=== PATIENT | female | born 1955 | race Hispanic/Latino ===

== ENCOUNTER 2024-08-17 10:54 | Emergency (ER) | payer MEDICARE ==
[2024-08-17 12:04] LABS: #Basophils 0.03 10x3/uL (0.0-0.2); %Basophils 0.5 % (0.0-1.0); %Eosinophils 3.6 % (0.0-10.0); %Monocytes 8.1 % (0.0-10.0); %Neutrophils 54.5 % (42.0-75.0); Hematocrit 33.5 % (36.0-47.0); Hemoglobin 11.6 g/dL (12.0-16.0); Mean Corpuscular HGB CONC 34.6 g/dL (32.0-36.0); Mean Corpuscular Hemoglobin 29.4 pg (27.0-31.0); Mean Corpuscular Volume 84.8 fL (78.0-98.0); Mean Platelet Volume 10.8 fL (7.4-10.4); Platelet Count 205 10x3/uL (130-400); Red Blood Cell (RBC) Count 3.95 mill/uL (4.20-5.40)
[2024-08-17 12:45] LABS: Troponin I Less than 0.010 ng/mL (< 0.028)
[2024-08-17 12:58] LABS: ALT (SGPT) 10 U/L (8-55); AST (SGOT) 32 U/L (5-34); Albumin 3.3 g/dL (3.4-4.8); Alkaline Phosphatase 236 U/L (40-110); Anion Gap 14 mmol/L (10-20); BUN (Urea Nitrogen) 20 mg/dL (9.8-20.1); Bilirubin, Total 0.3 mg/dL (0.2-1.2); Calc. Creatinine Clearance 0 mL/min (70-130); Calcium 8.9 mg/dL (7.8-10.44); Carbon Dioxide 24 mmol/L (23-31); Chloride 98 mmol/L (98-107); Estimated GFR 43; Globulin 4.2 g/dL (2.4-3.5); Glucose 599 mg/dL (80-115); Lipase 8 U/L (8-78); Potassium 4.6 mmol/L (3.5-5.1); Protein, Total 7.5 g/dL (5.8-8.1); Sodium 131 mmol/L (136-145)
[2024-08-17 13:27] LABS: Actual Bicarbonate (HCO3v) 28.5 mEq/L (22-28); Analyzer IN Cardio ER; Base Excess 2.1 mEq/L (-2.0 to +3.0); Calcium, Ionized (venous) 1.15 mmol/L (1.16-1.32); Chloride (VBG) 97 mmol/L (98-106); Hematocrit-VBG 34 % (36.0-47.0); Hemoglobin (Hb) 11.7 g/dL (11.7-16.1); Potassium (VBG) 4.33 mmol/L (3.70-5.30); Sodium 133 mmol/L (133-146)
[2024-08-17 13:55] LABS: Bacteria/HPF None Seen HPF (None Seen); Bilirubin Negative (Negative); Blood, Urine Negative (Negative); CAUTI Indications for Culture Pelvic or flank pain; Clarity Clear (Clear); Glucose, Urine (Dipstick) Greater than 1000 mg/dL (Negative); Ketone, Urine Negative (Negative); Leukocyte Negative Leu/uL (Negative); Nitrite Negative (Negative); Protein, Urine (Dipstick) Negative (Neg-Trace); RBC/HPF 0-3 HPF (0-3); Specific Gravity, Urine 1.025 (1.002-1.036); Squamous Epithelial 0-3 HPF (0-3); Urobilinogen Normal mg/dL (Less than 2); WBC/HPF 0-3 HPF (0-3); pH, Urine 6.5 (5.0-9.0)
[2024-08-17 13:58] LABS: Urine Culture Reflex No No
[2024-08-17] MEDS ORDERED: Iopamidol-370 76% 500 ML MDV (1 ML CHARGE) ONE (14:04)
[2024-08-17] MEDS ORDERED: Ketorolac Tromethamine 30 MG (1 mL) VIAL ONE (14:12)
[2024-08-17] MEDS ORDERED: Acetaminophen 500 MG TAB ONE (14:12)
[2024-08-17] MEDS ORDERED: Insulin Regular, Human 100 UNIT/ML 10 ML VIAL ONE (17:02)
[2024-08-17] MEDS ORDERED: cefTRIAXone (ROCEPHIN) 1 GM VIAL ONE (18:01)
[2024-08-17] MEDS ORDERED: Sodium Chloride 0.9% 100 ML ONE (18:01)
== END 2024-08-17 19:19 | disposition home or self-care (01) ==
LOC: ERS 10:54
DX: K04.7 Periapical abscess without sinus (principal); E11.65 Type 2 diabetes mellitus with hyperglycemia; I10 Essential (primary) hypertension; E03.9 Hypothyroidism, unspecified; Z55.6 Problems related to health literacy
CPT/HCPCS: 70450; 70487; 71045; 80053; 81001; 82805; 82962; 83605; 83690; 84484; 85025; 93005; J0696; J1815; J1885; 36415; 36416; 96365; 96375; Q9967

== ENCOUNTER 2024-09-09 19:25 | Inpatient (IN) | payer MEDICARE ==
[2024-09-09 20:54] LABS: #Basophils 0.05 10x3/uL (0.0-0.2); %Basophils 0.5 % (0.0-1.0); %Eosinophils 3.9 % (0.0-10.0); %Lymphocytes 28.8 % (21.0-51.0); %Monocytes 8.4 % (0.0-10.0); %Neutrophils 58.1 % (42.0-75.0); Hemoglobin 11.3 g/dL (12.0-16.0); Mean Corpuscular HGB CONC 34.2 g/dL (32.0-36.0); Mean Corpuscular Volume 84.8 fL (78.0-98.0); Mean Platelet Volume 10.5 fL (7.4-10.4); Platelet Count 189 10x3/uL (130-400); Red Blood Cell (RBC) Count 3.89 mill/uL (4.20-5.40)
[2024-09-09 21:11] LABS: ALT (SGPT) 10 U/L (8-55); AST (SGOT) 23 U/L (5-34); Albumin 3.4 g/dL (3.4-4.8); Alkaline Phosphatase 203 U/L (40-110); Anion Gap 15 mmol/L (10-20); BUN (Urea Nitrogen) 27 mg/dL (9.8-20.1); Bilirubin, Total 0.3 mg/dL (0.2-1.2); Calc. Creatinine Clearance 0 mL/min (70-130); Calcium 8.8 mg/dL (7.8-10.44); Carbon Dioxide 22 mmol/L (23-31); Chloride 103 mmol/L (98-107); Estimated GFR 36; Globulin 3.8 g/dL (2.4-3.5); Glucose 395 mg/dL (80-115); Lipase 8 U/L (8-78); Magnesium 1.6 mg/dL (1.6-2.6); Potassium 4.2 mmol/L (3.5-5.1); Protein, Total 7.2 g/dL (5.8-8.1); Sodium 136 mmol/L (136-145)
[2024-09-09 21:17] LABS: Troponin I 0.025 ng/mL (< 0.028)
[2024-09-09] MEDS ORDERED: Acetaminophen 500 MG TAB ONE (21:56)
[2024-09-09] MEDS ORDERED: Morphine 4 MG/ML VIAL ONE (22:29)
[2024-09-09] MEDS ORDERED: Azithromycin 500 MG VIAL ONE (23:11)
[2024-09-09] MEDS ORDERED: methylPREDNISolone Sod Succ/PF 125 MG/2 ML VIAL ONE (23:11)
[2024-09-09] MEDS ORDERED: cefTRIAXone (ROCEPHIN) 2 GM VIAL ONE (23:11)
[2024-09-09] MEDS ORDERED: Sodium Chloride 0.9% 100 ML ONE (23:11)
[2024-09-09] MEDS ORDERED: Ipratropium/Albuterol 3 ML NEB ONE (23:11)
[2024-09-09] MEDS ORDERED: Aspirin Chewable 81 MG TAB ONE (23:30)
[2024-09-10] MEDS ORDERED: Dextrose 50% Abboject 50 ML SYRINGE SLOW IVP PRN (02:08)
[2024-09-10] MEDS ORDERED: Ondansetron PF 4 MG/2 ML Vial IVP PRN (02:08)
[2024-09-10] MEDS ORDERED: Ondansetron ODT 4 MG TAB PO PRN (02:08)
[2024-09-10] MEDS ORDERED: Glucagon 1 MG/ML KIT IM PRN (02:08)
[2024-09-10] MEDS ORDERED: Dextrose 5% in Water 1,000 ML IV PRN (02:08)
[2024-09-10] MEDS ORDERED: Ipratropium/Albuterol 3 ML NEB NEB PRN (02:24)
[2024-09-10 02:51] LABS: Troponin I 0.063 ng/mL (< 0.028)
[2024-09-10] MEDS ORDERED: Nitroglycerin 0.4 MG TAB (25 Tab Bottle) SL PRN (03:15)
[2024-09-10] MEDS ORDERED: Ketorolac Tromethamine 30 MG (1 mL) VIAL ONE (05:57)
[2024-09-10] MEDS ORDERED: Ketorolac Tromethamine 30 MG (1 mL) VIAL IVP SCH (06:00)
[2024-09-10] MEDS: Ketorolac Tromethamine 30 MG (1 mL) VIAL IVP PRN (06:06)
[2024-09-10] MEDS ORDERED: Insulin Lispro 100 UNIT/ML 10 ML VIAL ONE (06:27)
[2024-09-10] MEDS: Insulin Lispro 100 UNIT/ML 10 ML VIAL SC PRN ×2 (06:28→21:36)
[2024-09-10 07:44] LABS: #Basophils 0.03 10x3/uL (0.0-0.2); #Eosinophils Less than 0.03 10x3/uL (0.0-0.7); %Basophils 0.4 % (0.0-1.0); %Lymphocytes 14.1 % (21.0-51.0); %Monocytes 0.4 % (0.0-10.0); %Neutrophils 84.7 % (42.0-75.0); Hematocrit 34.8 % (36.0-47.0); Hemoglobin 11.9 g/dL (12.0-16.0); Mean Corpuscular HGB CONC 34.2 g/dL (32.0-36.0); Mean Corpuscular Hemoglobin 28.9 pg (27.0-31.0); Mean Corpuscular Volume 84.5 fL (78.0-98.0); Mean Platelet Volume 10.4 fL (7.4-10.4); Platelet Count 192 10x3/uL (130-400); RBC Distribution Width 12.8 % (11.5-14.5); Red Blood Cell (RBC) Count 4.12 mill/uL (4.20-5.40)
[2024-09-10 08:12] LABS: Anion Gap 14 mmol/L (10-20); BUN (Urea Nitrogen) 24 mg/dL (9.8-20.1); Calc. Creatinine Clearance 65 mL/min (70-130); Calcium 8.9 mg/dL (7.8-10.44); Carbon Dioxide 19 mmol/L (23-31); Cardiac Risk 3.4 (Less than 4.5); Chloride 105 mmol/L (98-107); Cholesterol 173 mg/dl (< 200 Desired); Estimated GFR 57; Glucose 413 mg/dL (80-115); HDL Cholesterol 51 mg/dL (>60 Neg Risk); LDL Cholesterol, Calculated 111 mg/dL; Potassium 4.1 mmol/L (3.5-5.1); Sodium 134 mmol/L (136-145); Triglycerides 55 mg/dL (Less than 150)
[2024-09-10] MEDS ORDERED: Heparin 5,000 UNITS/ML VIAL SC SCH (09:00)
[2024-09-10] MEDS ORDERED: Aspirin 81 mg Enteric Coated Tablet ONE (09:26)
[2024-09-10] MEDS ORDERED: Gabapentin 300 MG CAP ONE (09:26)
[2024-09-10] MEDS ORDERED: Aspirin Chewable 81 MG TAB ONE (09:29)
[2024-09-10] MEDS: Aspirin Chewable 81 MG TAB PO SCH (09:32)
[2024-09-10] MEDS: Gabapentin 300 MG CAP PO SCH (09:32)
[2024-09-10] MEDS ORDERED: Regadenoson 0.4 MG/5 ML SYRINGE ONE (13:31)
[2024-09-10 14:57] LABS: Hemoglobin A1c 11.5 % (4.0-6.0)
[2024-09-10 15:47] VITALS: BMI 30.8
[2024-09-10] MEDS: Metoprolol Tartrate 25 MG TAB PO SCH (16:27)
[2024-09-10] MEDS: Cyclobenzaprine 10 MG TAB PO SCH (16:27)
[2024-09-10] MEDS: HYDROcodone/Acetaminophen 5/325 mg Tablet PO PRN (21:35)
[2024-09-10] MEDS: Cyclobenzaprine 10 MG TAB PO PRN (21:35)
[2024-09-10] MEDS: Insulin Glargine 30 UNITS/0.3 ML VIAL SC SCH (21:37)
[2024-09-10] MEDS: Azithromycin 500 MG in Sodium Chloride 0.9% 250 ML 250 ML IVPB SCH (23:10)
[2024-09-10] MEDS: cefTRIAXone\\ROCEPHIN 1 GM in Sodium Chloride 0.9% 100 ML IVPB SCH (23:10)
[2024-09-10] MEDS: Ketorolac Tromethamine 30 MG (1 mL) VIAL IVP SCH (23:49)
[2024-09-11] MEDS ORDERED: traZODone HCl 50 MG TAB PO PRN (00:21)
[2024-09-11] MEDS: Insulin Glargine 30 UNITS/0.3 ML VIAL SC SCH (00:41)
[2024-09-11 05:36] LABS: %Basophils 0.5 % (0.0-1.0); %Eosinophils 0.5 % (0.0-10.0); %Lymphocytes 30.2 % (21.0-51.0); %Monocytes 8.3 % (0.0-10.0); %Neutrophils 60.1 % (42.0-75.0); Hematocrit 31.5 % (36.0-47.0); Mean Corpuscular HGB CONC 34.9 g/dL (32.0-36.0); Mean Corpuscular Hemoglobin 29.6 pg (27.0-31.0); Mean Corpuscular Volume 84.7 fL (78.0-98.0); Platelet Count 188 10x3/uL (130-400); RBC Distribution Width 13.2 % (11.5-14.5); Red Blood Cell (RBC) Count 3.72 mill/uL (4.20-5.40)
[2024-09-11 05:37] LABS: #Basophils 0.06 10x3/uL (0.0-0.2)
[2024-09-11 05:56] LABS: Anion Gap 11 mmol/L (10-20); BUN (Urea Nitrogen) 32 mg/dL (9.8-20.1); Calc. Creatinine Clearance 53 mL/min (70-130); Carbon Dioxide 23 mmol/L (23-31); Chloride 106 mmol/L (98-107); Estimated GFR 45; Glucose 327 mg/dL (80-115); Magnesium 1.8 mg/dL (1.6-2.6); Sodium 136 mmol/L (136-145)
[2024-09-11 05:59] LABS: ALT (SGPT) 7 U/L (8-55); AST (SGOT) 17 U/L (5-34); Alkaline Phosphatase 154 U/L (40-110); Bilirubin, Direct 0.2 mg/dL (0.1-0.3); Bilirubin, Total 0.5 mg/dL (0.2-1.2); Protein, Total 6.4 g/dL (5.8-8.1)
[2024-09-11] MEDS: Ketorolac Tromethamine 10 MG TAB PO PRN (07:27)
[2024-09-11] MEDS: Insulin Lispro 100 UNIT/ML 10 ML VIAL SC SCH ×3 (07:28→16:48)
[2024-09-11] MEDS: Amoxicillin/Potassium Clav 875 MG TAB PO SCH (08:24)
[2024-09-11] MEDS: Enoxaparin 40 MG (0.4 mL) SYRINGE SC SCH (08:26)
[2024-09-11 10:38] LABS: Anion Gap 12 mmol/L (10-20); BUN (Urea Nitrogen) 31 mg/dL (9.8-20.1); Calc. Creatinine Clearance 54 mL/min (70-130); Calcium 9.4 mg/dL (7.8-10.44); Carbon Dioxide 25 mmol/L (23-31); Chloride 103 mmol/L (98-107); Estimated GFR 47; Glucose 301 mg/dL (80-115); Potassium 4.3 mmol/L (3.5-5.1); Sodium 136 mmol/L (136-145)
[2024-09-11] MEDS: Lactated Ringer's 1,000 ML IV SCH (11:19)
[2024-09-11] MEDS ORDERED: BUPRENORPHINE NALOX SL SCH (15:00)
[2024-09-11] MEDS: Cyclobenzaprine 10 MG TAB PO SCH (16:17)
[2024-09-11] MEDS: metFORMIN 500 MG TAB PO SCH (16:48)
[2024-09-11] MEDS: Atorvastatin Calcium 40 MG TAB PO SCH (20:57)
[2024-09-12] MEDS: Acetaminophen 325 MG TAB PO PRN (04:03)
[2024-09-12 04:46] LABS: Creatinine, Urine 69.59 mg/dL (47-110)
[2024-09-12 04:47] LABS: Microalbumin Urine Less than 0.5 mg/dL (0.5-50.0)
[2024-09-12] MEDS: Levothyroxine Sodium 25 MCG TAB PO SCH (04:53)
[2024-09-12] MEDS: Cyclobenzaprine 10 MG TAB PO SCH (04:53)
[2024-09-12] MEDS: Levothyroxine Sodium 112 MCG TAB PO SCH (04:53)
[2024-09-12] MEDS: Fioricet 325/50/40 mg Tablet PO SCH (05:18)
[2024-09-12 05:49] LABS: #Basophils 0.06 10x3/uL (0.0-0.2); %Basophils 0.6 % (0.0-1.0); %Eosinophils 4.8 % (0.0-10.0); %Lymphocytes 51.1 % (21.0-51.0); %Monocytes 7.2 % (0.0-10.0); Hematocrit 31.4 % (36.0-47.0); Hemoglobin 10.6 g/dL (12.0-16.0); Mean Corpuscular HGB CONC 33.8 g/dL (32.0-36.0); Mean Corpuscular Hemoglobin 29.2 pg (27.0-31.0); Mean Corpuscular Volume 86.5 fL (78.0-98.0); Platelet Count 171 10x3/uL (130-400); RBC Distribution Width 13.4 % (11.5-14.5); Red Blood Cell (RBC) Count 3.63 mill/uL (4.20-5.40)
[2024-09-12 06:28] LABS: Anion Gap 11 mmol/L (10-20); BUN (Urea Nitrogen) 26 mg/dL (9.8-20.1); Calc. Creatinine Clearance 68 mL/min (70-130); Calcium 8.7 mg/dL (7.8-10.44); Carbon Dioxide 23 mmol/L (23-31); Chloride 105 mmol/L (98-107); Estimated GFR 61; Glucose 221 mg/dL (80-115); Magnesium 1.4 mg/dL (1.6-2.6); Potassium 4.2 mmol/L (3.5-5.1); Sodium 135 mmol/L (136-145)
[2024-09-12] MEDS: DULoxetine 30 MG CAP PO SCH (08:52)
[2024-09-12] MEDS: TICAGRELOR 90 MG TABLET PO SCH (08:52)
[2024-09-12] MEDS: FLU (Fluad Triv) TS24-25 (65UP)/MF59C/PF 45 MCG/0.5 ML Syringe IM ONE (10:31)
[2024-09-12 12:01] VITALS: BP 149/69
[2024-09-12] MEDS: Magnesium Sulfate In Water 4 GM in Premix 1 BAG IVPB SCH (14:55)
[2024-09-12] MEDS ORDERED: Cyclobenzaprine 10 MG TAB PO SCH (15:00)
[2024-09-12 16:41] VITALS: TEMP 98
== END 2024-09-12 16:41 | disposition home or self-care (01) | DRG 74 ==
LOC: ERS 19:25 → ERHOLD 09-10 01:19 → OBSVTOIN 09-10 13:54 → OBS 09-10 15:38
PROVIDERS: ADMIT Internal Medicine; ATTEND Internal Medicine
DX: G50.0 Trigeminal neuralgia (principal); N17.9 Acute kidney failure, unspecified; N18.4 Chronic kidney disease, stage 4 (severe); E03.9 Hypothyroidism, unspecified; I25.10 Atherosclerotic heart disease of native coronary artery without angina pectoris; E11.22 Type 2 diabetes mellitus with diabetic chronic kidney disease; I12.9 Hypertensive chronic kidney disease with stage 1 through stage 4 chronic kidney disease, or unspecified chronic kidney disease; K02.9 Dental caries, unspecified; E11.65 Type 2 diabetes mellitus with hyperglycemia; J45.20 Mild intermittent asthma, uncomplicated; I35.0 Nonrheumatic aortic (valve) stenosis; E78.5 Hyperlipidemia, unspecified; R07.89 Other chest pain; Z95.5 Presence of coronary angioplasty implant and graft; Z88.1 Allergy status to other antibiotic agents; Z79.890 Hormone replacement therapy; Z79.899 Other long term (current) drug therapy; Z79.82 Long term (current) use of aspirin; Z79.4 Long term (current) use of insulin; Z79.84 Long term (current) use of oral hypoglycemic drugs; Z90.49 Acquired absence of other specified parts of digestive tract; E83.42 Hypomagnesemia; Z23 Encounter for immunization
CPT/HCPCS: 36415; 36416; 70450; 70490; 71045; 71250; 78452; 80048; 80053; 80061; 80076; 82043; 83036; 83605; 83690; 83735; 83880; 84145; 84300; 84443; 84484; 85025; 85379; 86141; 90653; 93005; 93010; 93017; 93306; 93970; 96365; 96372; 96375; 96376; A9502; G0378; J0456; J0696; J1650; J1815; J1885; J2272; J2785; J2919; J7050; J7120; J7620